=== PATIENT | female | born 1970 | race Caucasian/White ===

== ENCOUNTER → 2016-06-12 | Outpatient (CLI) | payer BC ==
--- NOTE | 2016-06-13 13:58 | MM ---
Reason for exam: screening (asymptomatic). Last mammogram was performed 2 years and 10 months ago. History: Patient is nulliparous. Physical Findings: A clinical breast exam by your physician is recommended on an annual basis and results should be correlated with mammographic findings. MG Screening Mammo w CAD Bilateral CC and MLO view(s) were taken. Prior study comparison: August 06, 2013, right breast MG work up mamm w CAD RT. July 27, 2013, bilateral MG screening mammo w CAD. The breast tissue is heterogeneously dense. This may lower the sensitivity of mammography. Some faint calcifications superior right breast were present previously. No significant changes when compared with prior studies. ASSESSMENT: Negative, BI-RAD 1 RECOMMENDATION: Routine screening mammogram of both breasts in 1 year.
== END | disposition home or self-care (01) ==
LOC: RADMAMWWP 14:56
PROVIDERS: ATTEND Obstetrics & Gynecology
DX: Z12.31 Encounter for screening mammogram for malignant neoplasm of breast (principal)

== ENCOUNTER → 2020-08-18 | Outpatient (CLI) | payer BC ==
--- NOTE | 2020-08-22 11:10 | MM ---
Reason for exam: screening (asymptomatic). Last mammogram was performed 4 years and 2 months ago. History: Patient is nulliparous. Physical Findings: A clinical breast exam by your physician is recommended on an annual basis and results should be correlated with mammographic findings. MG Screening Mammo w CAD Bilateral CC and MLO view(s) were taken. Prior study comparison: June 12, 2016, bilateral MG screening mammo w CAD. August 06, 2013, right breast MG work up mamm w CAD RT. The breast tissue is heterogeneously dense. This may lower the sensitivity of mammography. Finding: There are intermediate concern, suspicious grouped/clustered calcifications in the upper outer quadrant of the right breast. ASSESSMENT: Incomplete: need additional imaging evaluation, BI-RAD 0 RECOMMENDATION: Special view mammogram of the right breast. [facility] will attempt to contact patient to return for supplemental views.
== END | disposition home or self-care (01) ==
LOC: RADMAMWWP 10:58
PROVIDERS: ATTEND Family Medicine
DX: Z12.31 Encounter for screening mammogram for malignant neoplasm of breast (principal)
CPT/HCPCS: 77067

== ENCOUNTER → 2020-08-30 | Outpatient (CLI) | payer BC ==
--- NOTE | 2020-08-31 07:47 | MM ---
Reason for exam: additional evaluation requested from abnormal screening. Last mammogram was performed less than 1 month ago. History: Patient is postmenopausal and is nulliparous. Physical Findings: Nurse did not find any significant physical abnormalities on exam. MG Work Up Mamm w CAD RT CC with magnification, LM with magnification, and LM view(s) were taken of the right breast. Prior study comparison: August 18, 2020, bilateral MG screening mammo w CAD. June 12, 2016, bilateral MG screening mammo w CAD. The breast tissue is heterogeneously dense. This may lower the sensitivity of mammography. Finding: There are intermediate concern, suspicious amorphous, coarse heterogeneous, grouped/clustered calcifications in the upper outer quadrant, posterior position of the right breast, 2.7cm in length, do not layer on true lateral view. These results were verbally communicated with the patient and result sheet given to the patient on 08/30/20. ASSESSMENT: Suspicious, BI-RAD 4 RECOMMENDATION: Stereotactic core biopsy of the right breast. Called Dr. Bruner's office with mammographic findings and has scheduled an appointment for the patient for 08/31/20 at 2:[address] Anderson. PRELIMINARY REPORT CALLED AND FAXED TO DR. ANDERSON ON 08/31/20.
== END | disposition home or self-care (01) ==
LOC: RADMAMWWP 13:46
PROVIDERS: ATTEND Family Medicine
DX: R92.1 Mammographic calcification found on diagnostic imaging of breast (principal); Z78.0 Asymptomatic menopausal state
CPT/HCPCS: 77065

== ENCOUNTER → 2020-09-18 | Day surgery (SDC) | payer BC ==
[2020-09-18 07:16] VITALS: RESP 16; TEMP 98.6
[2020-09-18 08:46] VITALS: BP 179/109; PULSE 88
--- NOTE | 2020-09-18 09:47 | P.PCN ---
Date of Procedure: 09/18/20 Preoperative Diagnosis: Abnormal mammogram right breast Postoperative Diagnosis: Abnormal mammogram right breast Procedure(s) Performed: Right stereotactic breast biopsy with marker placement Anesthesia: local Surgeon: Adali Anderson Pathology: other Condition: stable Description of Procedure: The patient is taken to the stereotactic suite where the area of concern is marked by the radiologist. The breast is prepped with betadine. Local anesthetic is instilled into the skin and breast tissue. A skin knick is made and the needle is advanced to the appropriate depth. Pre and post fire films are obtained. Multiple vacuum assisted automated cores are then obtained. Specimen mammography is obtained and shows multiple calcifications present. A tissue marker is then placed. Mammography showed good placement. THe needle and sheath are withdrawn. Pressure is held. A sterile dressing is placed. THe patient tolerated the procedure without difficulty and is discharged in good condition. She will follow up in the office with further recommendations to follow.
--- NOTE | 2020-09-18 17:31 | MM ---
EXAMINATION TYPE: MG stereo VAD BX RT DATE OF EXAM: 09/18/2020 COMPARISON: 08/18/2020 CLINICAL HISTORY: Right breast calcifications TECHNIQUE: Stereotactic guided core biopsy of right breast. FINDINGS: The procedure of stereotactic guided core biopsy was explained to the patient. Benefits, a lternatives, and risks were discussed. An informed consent was then obtained. The shortness pathway for biopsy was chosen. A performed for localization. Then, surgeon, Dr. Dr. Andrea pimentel performed the remainder of the procedure. A vacuum assisted biopsy gun was used to obtain multipl e core samples. The patient tolerated the procedure well without any immediate complication. The patient was kept in the radiology department for short stay after the procedure and then discharged home in stable condi tion. Targeted calcifications are identified in specimen mammogram. Post biopsy mammogram shows the clip to appear in satisfactory position relative to the targeted area of concern on the preprocedure images. IMPRESSION: SUCCESSFUL, UNCOMPLICATED STEREOTACTIC GUIDED CORE BIOPSY OF AREA OF CONCERN IN THE RIGHT BREAST by gal montgomery surgeon, FULL PATHOLOGY RESULTS TO FOLLOW.
== END ==
LOC: RADMAMWWP 07:03
PROVIDERS: ATTEND Surgery
DX: C50.911 Malignant neoplasm of unspecified site of right female breast (principal); R92.0 Mammographic microcalcification found on diagnostic imaging of breast
CPT/HCPCS: 88305; 88342; 88341; 19081; A4648

== ENCOUNTER 2020-10-09 07:45 | Day surgery (SDC) | payer BC ==
[2020-10-05 15:05] VITALS: BMI 18.6
[~2020-10-09 07:45] MED LIST: DEXAMETHASONE SOD PHOSPHATE 4 MG/ML 1 ML VIAL IV ONE; HYDROmorphone 0.5 MG/0.5 ML SYRINGE IVP PRN; LACTATED RINGERS 1,000 ML IV SCH; LIDOCAINE 1% (10MG/ML) FOR IV START INTRADERMA PRN; MIDAZOLAM 2 MG/2 ML VIAL IV PRN; ONDANSETRON 4 MG/2 ML VIAL IVP ONE; Pre Op ABX Message 1 EACH MISC MISCELLANE ONE
[2020-10-09] MEDS ORDERED: ALPRAZolam 0.5 MG TAB ONE (08:29)
[2020-10-09] MEDS ORDERED: ALPRAZolam 0.5 MG TAB PO ONE (08:31)
--- NOTE | 2020-10-09 08:54 | P.PN ---
Progress Note - Text Progress Note Date: 10/09/20 H&P amendment: The patient discussed the treatment options with her family. I talked to her on the phone. She elected for lumpectomy with sentinel lymph node biopsy. The procedure Risk and complications were discussed. Questions were encouraged and answered.
[2020-10-09] MEDS ORDERED: ePHEDrine SULFATE/0.9% NACL/PF 50 MG/5 ML SYRINGE IV ONE (11:33)
[2020-10-09] MEDS ORDERED: fentaNYL (PF) 50 MCG/ML 2 ML AMP ONE (11:33)
[2020-10-09] MEDS ORDERED: MIDAZOLAM 2 MG/2 ML VIAL ONE (11:33)
[2020-10-09] MEDS ORDERED: KETAMINE 10 MG/ML 20 ML VIAL ONE (11:33)
[2020-10-09] MEDS ORDERED: LIDOCAINE 1% INJ 10MG/ML (20 ML MDV) ONE (11:33)
[2020-10-09] MEDS ORDERED: SUCCINYLCHOLINE CHLORIDE 100 MG/5 ML SYR IV ONE (11:33)
[2020-10-09] MEDS ORDERED: PROPOFOL 10 MG/ML 20 ML VIAL IV ONE (11:33)
[2020-10-09] MEDS ORDERED: SODIUM CHLORIDE 0.9% 100 ML with ceFAZolin 2,000 MG IV ONE ×2 (11:55)
[2020-10-09] MEDS ORDERED: LACTATED RINGERS 1,000 ML IV ONE (12:02)
[2020-10-09] MEDS ORDERED: LIDOCAINE 0.5%-EPI 1:200,000 50 ML VIAL SQ ONE (12:53)
[2020-10-09] MEDS ORDERED: BUPIVACAINE (PF) 0.25% 30 ML VIAL SQ ONE (12:53)
--- NOTE | 2020-10-09 13:08 | P.OP ---
Date of Procedure: 10/09/20 Preoperative Diagnosis: Breast cancer right breast Postoperative Diagnosis: Breast cancer right breast Procedure(s) Performed: Needle localized lumpectomy with sentinel lymph node biopsy Anesthesia: DAWNA Surgeon: Adali Anderson Estimated Blood Loss (ml): 15 Pathology: other Condition: stable Disposition: PACU Indications for Procedure: The patient had a stereotactic breast biopsy performed for microcalcification showing a infiltrating ductal carcinoma Description of Procedure: Patient's taken the operative suite where she is prepped and draped in the usual sterile manner under general endotracheal anesthetic. Starting on the right axilla, probe was used to identify the sentinel lymph node. Counts at the skin level was about 200. A small skin incision was made and dissection was carried down to the sentinel lymph node. This was small. Ex vivo count was over 1000. There was a secondary lymph node which was also dissected, ex vivo count was about 300. These were sent for frozen section. The verbal report was that there was no cancer in either lymph node. The skin incision was closed with 4-0 Vicryl in a subcuticular manner. Steri-Strips were applied. The area was covered with a sterile towel. A small skin incision was then made on the breast. Skin flaps were raised. Dissection was carried out over the tissue which was marked by the guidewire. This was dissected off the pectoralis muscle. The specimen was tagged and sent for mammography. The tissue marker was within the specimen along with the scattered area of microcalcifications. Small bleeding points were then controlled with electrocautery. The biopsy cavity was marked with ligaclips. The skin was closed with 4-0 Vicryl in a subcuticular manner. Steri-Strips and dressings were applied. She tolerated the procedure without difficulty and was taken to recovery room in satisfactory condition. According to or personnel, WERE correct. Plan - Discharge Summary Discharge Rx Participant: No New Discharge Prescriptions: New traMADol HCL 1 - 2 mg PO Q6HR PRN #20 tablet PRN Reason: Pain No Action lisinopriL [Zestril] 5 mg PO DAILY ALPRAZolam [Xanax] 0.25 mg PO DAILY PRN PRN Reason: Anxiety Discharge Medication List lisinopriL [Zestril] 5 mg PO DAILY 09/05/20 [History] ALPRAZolam [Xanax] 0.25 mg PO DAILY PRN 10/05/20 [History] traMADol HCL 1 - 2 mg PO Q6HR PRN #20 tablet 10/09/20 [Rx] Follow up Appointment(s)/Referral(s): Adali Anderson DO [Doctor of Osteopathic Medicine] - 1 Week Activity/Diet/Wound Care/Special Instructions: Maintain the dressings until Friday. On Friday the dressings may be removed and you may shower. Use a light dressing if the incisions are rubbing on your clothing or there is a small amount of drainage. Where a well supporting bra. Ice to the incisions for 24-48 hours. You may take Tylenol or Motrin for pain. Call if questions or concerns Discharge Disposition: HOME SELF-CARE
[2020-10-09 13:20] VITALS: TEMP 97.1
[2020-10-09] MEDS ORDERED: hydrALAZINE HCL 20 MG/ML 1 ML VIAL ONE (13:35)
[2020-10-09] MEDS ORDERED: hydrALAZINE HCL 20 MG/ML 1 ML VIAL IVP ONE (13:38)
--- NOTE | 2020-10-09 14:07 | MM ---
EXAMINATION TYPE: MG pre op needle loc RT, MG surgical specimen RT DATE OF EXAM: 10/09/2020 COMPARISON: 10/09/2020 CLINICAL HISTORY: Right breast DCIS TECHNIQUE: Needle localization with wire placement and lumpectomy of area of concern in the right breast. FINDINGS: Prior to the procedure, I had a conversation with the ordering surgeon regarding the large area of calcifications measuring greater than 3 x 3 x 2 cm and she requested localization of the biopsy clip. The procedure of needle localization with wire placement and than surgical excision was explained to the patient. Benefits, alternatives, and risks were discussed. An informed consent was then obtained. The shortest pathway for procedure was chosen. Shortest pathway was lateral approach. The overlying skin was prepped and draped in usual sterile fashion. Lidocaine buffered with bicarbonate was used as anesthetic into the skin and subcutaneous tissue up to the level of area of concern. A 7 cm needle was used. It was placed via a lateral approach under mammographic guidance. Subsequent 90 degrees mammogram show the needle to be in satisfactory position relative to the targeted area. At this point, wire was placed and the needle was withdrawn. The wire was fixed to patient's skin. Images were marked for surgeon. The patient tolerated the procedure well without any immediate complication. The patient was kept in the radiology department for short stay after the procedure and then taken to surgery for surgical excision. Targeted clip and wire are identified in specimen mammogram. The patient was kept in hospital for short stay after the procedure and then discharged home in stable condition. Specimen radiographs of the right breast include the biopsy clip and distal localization wire with calcifications which approach the edge of the specimen. IMPRESSION: Successful, uncomplicated needle localization with wire placement and surgical excision of calcifications in the right breast, full pathology results to follow. Pathology Results: Malignant A. SENTINEL LYMPH NODE #1, RIGHT BREAST, BIOPSY: Lymph node negative for metastasis. CK7 and ANUJ immunoperoxidase stains are confirmatory (controls appropriate). B. SENTINEL LYMPH NODE #2, RIGHT BREAST, BIOPSY: Lymph node negative for metastasis. CK7 and ANUJ immunoperoxidase stains are confirmatory (controls appropriate). C. 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 DCIS closely approximates the anterior margin multifocally (much less than 1 mm from anterior margin) and is focally less than 1 mm from superior margin. See Surgical Pathology Cancer Case Summary. Recommendation Surgical consult of the right breast. Given multiple margins less than 1mm, calcifications at specimen edge and pathology upgrade to invasive, there is concern for residual disease. Please consider right diagnostic mammogram and bilateral breast MRI with and without contrast to evaluate for residual disease. MTDD
[2020-10-09 14:23] VITALS: BP 145/78; PULSE 68; RESP 18
--- NOTE | 2020-10-09 14:29 | NM ---
EXAMINATION TYPE: NM sentinel node injection DATE OF EXAM: 10/09/2020 COMPARISON: NONE INDICATION: Abnormal mammogram. Informed consent was obtained. A timeout was performed. The area around the right nipple was cleansed with alcohol. In a single dose, a total of 400 uCi Te chnetium 99m Tilmanocept was injected. The patient tolerated the procedure very well. IMPRESSIONS: 1. Successful injection for sentinel node evaluation.
== END 2020-10-09 14:38 | disposition home or self-care (01) ==
LOC: OR 07:45
PROVIDERS: ATTEND Surgery
DX: C50.911 Malignant neoplasm of unspecified site of right female breast (principal); Z87.891 Personal history of nicotine dependence; I10 Essential (primary) hypertension
CPT/HCPCS: 19301; 88342; 88331; 88307; 88341; 76098; 19281; 38792; 38500; A9520; J2250; J0360; J1100; J2405; J0690; J2001; J3010; J0330; J2704

== ENCOUNTER → 2020-11-08 | Outpatient (CLI) | payer BC ==
--- NOTE | 2020-11-09 09:31 | ECHOF ---
Referral Reason:Z01.818 pre chemo MEASUREMENTS -------- HEIGHT: 165.1 cm WEIGHT: 49.9 kg BP: RVIDd: 2.4 cm (< 3.3) IVSd: 0.8 cm (0.6 - 1.1) LVIDd: 3.1 cm (3.9 - 5.3) LVPWd: 1.1 cm (0.6 - 1.1) IVSs: 1.3 cm LVIDs: 1.6 cm LVPWs: 1.5 cm LAESV Index (A-L): 14.81 ml/m Ao Diam: 2.9 cm (2.0 - 3.7) AV Cusp: 1.2 cm (1.5 - 2.6) LA Diam: 2.6 cm (2.7 - 3.8) MV EXCURSION: 20.347 mm (> 18.000) MV EF SLOPE: 132 mm/s (70 - 150) EPSS: 1.0 cm MV E Shaji: 0.97 m/s MV DecT: 191 ms MV A Shaji: 0.76 m/s MV E/A Ratio: 1.28 AV maxP.21 mmHg AV meanP.27 mmHg RAP: 5.00 mmHg RVSP: 20.81 mmHg FINDINGS -------- This was a technically good study. The left ventricular size is normal. Left ventricular wall thickness is normal. Overall left vent ricular systolic function is normal with, an EF between 55 - 60 %. The diastolic filling pattern is normal for the age of the patient {E/E'}. The right ventricle is normal in size. The left atrial size is normal. Normal LA size by volume 22+/-6 ml/m2. The right atrial size is normal. The aortic valve is trileaflet and appears structurally normal. Peak/mean gradient across the Aorti c Valve is 13.21mmHg / 7.27mmHg. The mitral valve is normal. The mitral valve leaflets are mildly thickened. There is trace mitral regurgitation. The tricuspid valve appears structurally normal. Trace tricuspid regurgitation present. Right cyn tricular systolic pressure is normal at < 35 mmHg. There is no pulmonic regurgitation present. The aortic root size is normal. Normal inferior vena cava with normal inspiratory collapse consistent with estimated right atrial pre ssure of 5 mmHg. There is no pericardial effusion. CONCLUSIONS -------- 1. The left ventricular size is normal. 2. Left ventricular wall thickness is normal. 3. Overall left ventricular systolic function is normal with, an EF between 55 - 60 %. 4. The diastolic filling pattern is normal for the age of the patient {E/E'} 5. Peak/mean gradient across the Aortic Valve is 13.21mmHg / 7.27mmHg. 6. The mitral valve leaflets are mildly thickened. 7. There is trace mitral regurgitation. 8. Trace tricuspid regurgitation present. 9. There is no pericardial effusion. PIPE LINE MAINTENANCE SUPERVISOR: Bonnie Redman RDCS
== END | disposition home or self-care (01) ==
LOC: RADECHMAIN 13:54
PROVIDERS: ATTEND Internal Medicine Hematology & Oncology
DX: I08.1 Rheumatic disorders of both mitral and tricuspid valves (principal)
CPT/HCPCS: 93306

== ENCOUNTER → 2021-01-22 | Outpatient (CLI) | payer BC ==
--- NOTE | 2021-01-22 08:51 | USB ---
Reason for exam: clinical finding. History: Patient is postmenopausal, has history of breast cancer at age 50, and is nulliparous. Malignant MG pre op needle loc RT of the right breast, October 09, 2020. Lumpectomy of the right breast, October 09, 2020. Malignant MG stereo VAD BX RT of the right breast, September 18, 2020. Indicated problem(s): palpable abnormality and pain in the right breast. Physical Findings: Nurse did not find any significant physical abnormalities on exam. US Breast RT Technologist: Juanita Campuzano Right complete breast ultrasound includes all four quadrants, the retroareolar region and axilla. Finding demonstrates a 1.7 x 1.5 x 0.8cm questionable lumpectomy site at 12 o'clock. These results were verbally communicated with the patient and result sheet given to the patient on 01/22/21. ASSESSMENT: Probably benign, BI-RAD 3 RECOMMENDATION: Ultrasound of the right breast in 6 months.
== END | disposition home or self-care (01) ==
LOC: RADUSWWP 07:28
PROVIDERS: ATTEND Internal Medicine Hematology & Oncology
DX: R92.8 Other abnormal and inconclusive findings on diagnostic imaging of breast (principal); Z85.3 Personal history of malignant neoplasm of breast

== ENCOUNTER → 2021-02-12 | Outpatient (CLI) | payer BC ==
--- NOTE | 2021-02-13 13:00 | ECHOF ---
Referral Reason:Z01.818 Prechemotherapy exposure MEASUREMENTS -------- HEIGHT: 165.1 cm WEIGHT: 54.4 kg BP: RVIDd: 2.8 cm (< 3.3) IVSd: 0.9 cm (0.6 - 1.1) LVIDd: 4.5 cm (3.9 - 5.3) LVPWd: 0.9 cm (0.6 - 1.1) IVSs: 1.1 cm LVIDs: 2.8 cm LVPWs: 1.3 cm LAESV Index (A-L): 27.91 ml/m Ao Diam: 2.1 cm (2.0 - 3.7) AV Cusp: 1.5 cm (1.5 - 2.6) MV EXCURSION: 14.757 mm (> 18.000) MV EF SLOPE: 91 mm/s (70 - 150) EPSS: 0.4 cm MV E Shaji: 1.21 m/s MV DecT: 197 ms MV A Shaji: 0.50 m/s MV E/A Ratio: 2.42 RAP: 5.00 mmHg RVSP: 37.97 mmHg FINDINGS -------- Sinus rhythm. This was a technically adequate study. The left ventricular size is normal. Left ventricular wall thickness is normal. Overall left vent ricular systolic function is normal with, an EF between 55 - 60 %. The right ventricle is normal in size. Normal LA size by volume 22+/-6 ml/m2. The right atrial size is normal. Interatrial and interventricular septum intact. There is no evidence of aortic regurgitation. There is no evidence of aortic stenosis. Mild mitral regurgitation is present. Mild tricuspid regurgitation present. There is no evidence of pulmonary hypertension. The right v entricular systolic pressure, as measured by Doppler, is 37.97mmHg. There is no pulmonic regurgitation present. The aortic root size is normal. IVC Not well visulized. There is no pericardial effusion. CONCLUSIONS -------- 1. The left ventricular size is normal. 2. Left ventricular wall thickness is normal. 3. Overall left ventricular systolic function is normal with, an EF between 55 - 60 %. 4. Mild mitral regurgitation is present. 5. Mild tricuspid regurgitation present. THERMOSTAT MAKER: Kesha Lamb, [facility]
== END | disposition home or self-care (01) ==
LOC: RADECHMAIN 14:06
PROVIDERS: ATTEND Internal Medicine Hematology & Oncology
DX: Z01.818 Encounter for other preprocedural examination (principal); I08.1 Rheumatic disorders of both mitral and tricuspid valves
CPT/HCPCS: 93306

== ENCOUNTER → 2021-06-01 | Outpatient (CLI) | payer BC ==
--- NOTE | 2021-06-01 21:09 | PE ---
EXAMINATION TYPE: PET CT fusion skull to thigh DATE OF EXAM: 06/01/2021 COMPARISON: NONE HISTORY: Right-sided breast cancer removed in October 09, 2020 TECHNIQUE: Following the intravenous administration of 9.77 mCi of F-18 FDG, whole body images are p erformed from the skull base to the midthigh. Images are reviewed on the computer in the coronal, ax ial, and sagittal planes. Reconstructed rotating images are created on independent workstation and r eviewed on the computer. A localization and attenuation correction CT is performed in conjunction w ith the PET scan. Blood glucose level equals 78 SCAN: Initial Scan FINDINGS: SKULL BASE AND NECK: No areas of abnormal hypermetabolic uptake. CHEST, MEDIASTINUM, AND HILAR REGION: Surgical Changes from excision posterior upper outer quadrant r ight breast axial images 69 through 78. No abnormal hypermetabolic uptake at this level. No abnormal hypermetabolic uptake in either breast or axilla. No abnormal hypermetabolic uptake in the thorax. ABDOMEN AND PELVIS: Normal excretion. Nonspecific bowel uptake right lower quadrant and pelvis. No ad ditional abnormal hypermetabolic uptake. OSSEOUS STRUCTURES: No abnormal hypermetabolic uptake. OTHER CT: No significant findings. IMPRESSION: Posttreatment changes right breast. No abnormal hypermetabolic uptake Identified to suggest active residual or metastatic malignancy.
== END | disposition home or self-care (01) ==
LOC: RADPETMAIN 09:31
PROVIDERS: ATTEND Internal Medicine Hematology & Oncology
DX: C50.919 Malignant neoplasm of unspecified site of unspecified female breast (principal)
CPT/HCPCS: 78815; A9552

== ENCOUNTER → 2021-06-06 | Outpatient (CLI) | payer BC ==
--- NOTE | 2021-06-08 17:07 | ECHOF ---
Referral Reason:Z01.818 MEASUREMENTS -------- HEIGHT: 165.1 cm WEIGHT: 54.4 kg BP: RVIDd: 2.9 cm (< 3.3) IVSd: 0.8 cm (0.6 - 1.1) LVIDd: 4.3 cm (3.9 - 5.3) LVPWd: 1.0 cm (0.6 - 1.1) IVSs: 1.2 cm LVIDs: 2.5 cm LVPWs: 1.5 cm LAESV Index (A-L): 23.25 ml/m Ao Diam: 2.1 cm (2.0 - 3.7) AV Cusp: 1.5 cm (1.5 - 2.6) LA Diam: 2.5 cm (2.7 - 3.8) MV EXCURSION: 17.514 mm (> 18.000) MV EF SLOPE: 110 mm/s (70 - 150) EPSS: 0.3 cm MV E Shaji: 0.97 m/s MV DecT: 198 ms MV A Shaji: 0.68 m/s MV E/A Ratio: 1.43 RAP: 5.00 mmHg RVSP: 28.05 mmHg FINDINGS -------- Sinus rhythm. This was a technically adequate study. The left ventricular size is normal. Left ventricular wall thickness is normal. Overall left vent ricular systolic function is normal with, an EF between 55 - 60 %. The right ventricle is normal in size. Normal LA size by volume 22+/-6 ml/m2. The right atrial size is normal. Interatrial and interventricular septum intact. Trace amount of aortic regurgitation. There is no evidence of aortic stenosis. There is trace mitral regurgitation. Mild tricuspid regurgitation present. There is no evidence of pulmonary hypertension. The right v entricular systolic pressure, as measured by Doppler, is 28.05mmHg. There is no pulmonic regurgitation present. The aortic root size is normal. Normal inferior vena cava with normal inspiratory collapse consistent with estimated right atrial pre ssure of 5 mmHg. There is no pericardial effusion. CONCLUSIONS -------- 1. The left ventricular size is normal. 2. Left ventricular wall thickness is normal. 3. Overall left ventricular systolic function is normal with, an EF between 55 - 60 %. 4. Trace amount of aortic regurgitation. 5. There is trace mitral regurgitation. 6. Mild tricuspid regurgitation present. OPHTHALMIC AIDE: Kesha Lamb RDCS
== END | disposition home or self-care (01) ==
LOC: RADECHMAIN 14:38
PROVIDERS: ATTEND Internal Medicine Hematology & Oncology
DX: Z01.818 Encounter for other preprocedural examination (principal); I08.3 Combined rheumatic disorders of mitral, aortic and tricuspid valves
CPT/HCPCS: 93306

== ENCOUNTER → 2021-09-03 | Outpatient (CLI) | payer BC ==
--- NOTE | 2021-09-05 08:50 | MM ---
Reason for Exam: Screening (asymptomatic). Last mammogram was performed 1 year(s) and 1 month(s) ago. Patient History: Menarche at age 12. Patient has no children. Postmenopausal. Breast cancer, right, age 50. Previous chest radiation therapy at age 50. Previous chemotherapy at age 50. 10/09/2020, Lumpectomy on the Right side. 10/09/2020, Malignant Core Biopsy on the right side. 09/18/2020, Malignant Core Biopsy on the right side. Prior Study Comparison: 06/12/2016 Bilateral Screening Mammogram, [facility]. 08/18/2020 Bilateral Screening Mammogram, [facility]. 08/30/2020 Right Diagnostic Mammogram, [facility]. Tissue Density: The breast tissue is heterogeneously dense. This may lower the sensitivity of mammography. Findings: Analyzed By CAD. New distortion and surgical clips Zhang posttreatment changes in the upper outer aspect right breast. There is no suspicious group of microcalcifications in either breast. Overall Assessment: Probably benign, BI-RAD 3 Management: Diagnostic Mammogram of the right breast in 6 months. To establish new baseline for the right breast. Electronically signed and approved by: Efrain Rodriguez M.D.
== END | disposition home or self-care (01) ==
LOC: RADMAMWWP 11:42
PROVIDERS: ATTEND Internal Medicine Hematology & Oncology
DX: Z12.31 Encounter for screening mammogram for malignant neoplasm of breast (principal); Z78.0 Asymptomatic menopausal state
CPT/HCPCS: 77063; 77067

== ENCOUNTER → 2021-10-30 | Outpatient (CLI) | payer BC ==
--- NOTE | 2021-10-30 16:35 | BD ---
EXAMINATION TYPE: Axial Bone Density DATE OF EXAM: 10/30/2021 COMPARISON: NONE CLINICAL HISTORY: 51 years year old Female. ICD-10 CODE: C50.411 breast ca Height: 65 Weight: 114 FRAX RISK QUESTIONS: Alcohol (3 or more units per day): NO Family History (Parent hip fracture): NO Glucocorticoids (More than 3mos): NO History of Fracture in Adulthood: NO Secondary Osteoporosis: 1. Type 1 Diabetes: NO 2. Hyperthyroidism: NO 3. Menopause before 45: NO 4. Malnutrition: NO 5. Chronic liver disease: NO Rheumatoid Arthritis: NO Current Tobacco :NO RISK FACTORS HISTORY OF: Hip Fracture (Right/Left): nO Spine Fracture: NO History of Wrist Fracture: NO Surgery to Spine/Hip(right/left)/Wrist (right/left): NO Family History of Osteoporosis: NO Active: YES Diet low in dairy products/other sources of calcium: NO Postmenopausal woman: YES If Premenopausal, do you have irregular periods: YES Take estrogen and/or progesterone medications: ESTROGEN ELY SINCE BREAST CA. (2020) Lost more than 2 inches in height since high school: NO Frequent falls: NO Poor Health: NO Hyperparathyroidism: NO Adrenal Insufficiency: NO MEDICATIONS: Prednisone or other steroids: NO Thyroid Medications: NO Osteoporosis Medications:NO Additional Medications: ESTROGEN ELY, LISINOPRIL, VIT D, VIT B EXAM MEASUREMENTS: Bone mineral densitometry was performed using the [employer]. Bone mineral density as measured about the Lumbar spine is: ----- L1-L4(G/cm2): 0.993 T Score Values are as follows: ----- L1: -1.2 ----- L2: -1.7 ----- L3: -1.9 ----- L4: -1.6 ----- L1-L4: -1.6 BASELINE STUDY Bone mineral density about the R hip (g/cm2): 0.747 Bone mineral density about the L hip (g/cm2): 0.733 T Score values are as follows: -----R Neck: -2.1 -----L Neck: -2.2 -----R Total: -1.6 -----L Total: -1.7 BASELINE STUDY FRAX%s: The graph provided illustrates a 5.2% chance for a major osteoporotic fx and a 1.0% chance fo r the hips probability for fx in 10 years time. IMPRESSION: Osteopenia (T Score between -2.5 and -1). There is slightly increased risk of fracture and the patient may be considered for treatment. Re-Screen 2-5 years. NOTE: T-SCORE=SD OF THE YOUNG ADULT MEAN.
--- NOTE | 2021-10-30 17:40 | CA ---
Transthoracic Echo Report Name: Laina Liu Age: 51 Gender: F : 1970 Exam Date: 10/30/2021 12:25 Exam Location: [facility] Ht (in): 65 Wt (lb): 120 Ordering Physician: Paulo Samuel MD Attending/Referring Phys: Paulo Samuel MD Vamper Kesha Lamb RDCS Procedure CPT: Indications: Z01.818, C50.411 breast ca Cardiac Hx: Technical Quality: Contrast 1: Total Dose (mL): Contrast 2: Total Dose (mL): MEASUREMENTS (Male / Female) Normal Values 2D ECHO LV Diastolic Diameter PLAX 4.8 cm 4.2 - 5.9 / 3.9 - 5.3 cm LV Systolic Diameter PLAX 3.0 cm IVS Diastolic Thickness 0.8 cm 0.6 - 1.0 / 0.6 - 0.9 cm LVPW Diastolic Thickness 0.9 cm 0.6 - 1.0 / 0.6 - 0.9 cm LV Relative Wall Thickness 0.4 RV Internal Dim ED PLAX 2.1 cm LA Volume 19.9 cm??? 18 - 58 / 22 - 52 cm??? M-MODE Aortic Root Diameter MM 2.7 cm LA Systolic Diameter MM 3.4 cm LA Ao Ratio MM 1.3 AV Cusp Separation MM 1.7 cm DOPPLER AV Peak Velocity 181.0 cm/s AV Peak Gradient 13.1 mmHg LVOT Peak Velocity 110.9 cm/s LVOT Peak Gradient 4.9 mmHg MV Area PHT 3.4 cm??? Mitral E Point Velocity 117.6 cm/s Mitral A Point Velocity 78.3 cm/s Mitral E to A Ratio 1.5 MV Deceleration Time 224.7 ms MV E' Velocity 8.0 cm/s Mitral E to MV E' Ratio 14.6 TR Peak Velocity 258.5 cm/s TR Peak Gradient 26.7 mmHg Right Ventricular Systolic Press 30.7 mmHg FINDINGS Left Ventricle Normal left ventricular size, wall thickness, systolic function with no obvious regional wall motion abnormalities. Normal left ventricular diastolic filling pattern for age. The ejection fraction is visually estimated at 55 %. Right Ventricle The right ventricle is normal in size and function. Right ventricular systolic pressure within normal limits. Right Atrium The right atrium is normal in size. Left Atrium The left atrium is normal in size. No evidence for an atrial septal defect. Mitral Valve Structurally normal mitral valve without significant stenosis or prolapse. Mild mitral regurgitation. Aortic Valve Structurally normal aortic valve without significant sclerosis or stenosis. There is no aortic regurgitation. Tricuspid Valve Mild tricuspid regurgitation. Pulmonic Valve Structurally normal pulmonic valve without significant stenosis. Trace pulmonic regurgitation. Pericardium Normal pericardium without effusion. Aorta Normal aortic root dimension. CONCLUSIONS Left ventricular systolic function is normal with an ejection fraction of 55% Mild mitral regurgitation Previewed by: Dr. Leighton Garcia MD (Electronically Signed) Final Date: 30 October 2021 17:39
== END | disposition home or self-care (01) ==
LOC: RADECHMAIN 12:20
PROVIDERS: ATTEND Internal Medicine Hematology & Oncology
DX: Z01.818 Encounter for other preprocedural examination (principal); C50.411 Malignant neoplasm of upper-outer quadrant of right female breast
CPT/HCPCS: 77080; 93306

== ENCOUNTER → 2022-09-04 | Outpatient (CLI) | payer BC ==
--- NOTE | 2022-09-11 13:35 | MM ---
Reason for Exam: Hx of breast cancer, conservation therapy. Last screening mammogram was performed 12 month(s) ago. Patient History: Menarche at age 12. Patient has no children. Postmenopausal. Breast cancer, right, age 50. Previous chest radiation therapy at age 50. Previous chemotherapy at age 50. 10/09/2020, Lumpectomy on the Right side. 10/09/2020, Malignant Core Biopsy on the right side. 09/18/2020, Malignant Core Biopsy on the right side. Tissue Density: The breast tissue is heterogeneously dense. This may lower the sensitivity of mammography. Findings: Analyzed By CAD. Pattern is stable. There are lumpectomy surgical clips on the right. No significant interval changes are evident. No suspicious groups of microcalcifications, spiculated or lobular masses, architectural distortion or other secondary signs of malignancy are mammographically apparent. Overall Assessment: Benign, BI-RAD 2 Management: Diagnostic Mammogram of both breasts in 1 year. A negative mammogram report should not preclude additional follow up of suspicious palpable abnormalities. Patient should continue monthly self breast exam. A clinical breast exam by your physician is recommended on an annual basis and results should be correlated with mammographic findings. Electronically signed and approved by: Jai Estrada D.O. Radiologis
== END | disposition home or self-care (01) ==
LOC: RADMAMWWP 11:00
PROVIDERS: ATTEND Internal Medicine Hematology & Oncology
DX: Z12.31 Encounter for screening mammogram for malignant neoplasm of breast (principal); C50.411 Malignant neoplasm of upper-outer quadrant of right female breast; I10 Essential (primary) hypertension; Z78.0 Asymptomatic menopausal state; Z85.3 Personal history of malignant neoplasm of breast
CPT/HCPCS: 77062; 77066

== ENCOUNTER → 2023-09-08 | Outpatient (CLI) | payer BC ==
--- NOTE | 2023-09-08 14:48 | MM ---
Reason for Exam: Additional evaluation requested from prior study. Last screening mammogram was performed 12 month(s) ago. Patient History: Menarche at age 12. Patient has no children. Postmenopausal. Breast cancer, right, age 50. Previous chest radiation therapy at age 50. Previous chemotherapy at age 50. 10/09/2020, Lumpectomy on the Right side. 10/09/2020, Malignant Core Biopsy on the right side. 09/18/2020, Malignant Core Biopsy on the right side. Prior Study Comparison: 04/21/2008 Bilateral Screening Mammogram, LOCATED WITHIN [facility]. 07/27/2013 Bilateral Screening Mammogram, LOCATED [facility]. 08/06/2013 Right Diagnostic Mammogram, LOCATED [facility]. 06/12/2016 Bilateral Screening Mammogram, LOCATED [facility]. 08/18/2020 Bilateral Screening Mammogram, LOCATED [facility]. 08/30/2020 Right Diagnostic Mammogram, LOCATED [facility]. 01/22/2021 Right Diagnostic Ultrasound, LOCATED [facility]. 09/03/2021 Bilateral MG 3D screening mammo w/cad, LOCATED [facility]. 09/04/2022 Bilateral MG 3D diag mammo w/cad [facility], LOCATED [facility] 09/04/2022 Bilateral MG 3D screening mammo w/cad, LOCATED [facility]. 09/04/2022 Bilateral MG screening mammo w CAD, LOCATED [facility]. Tissue Density: There are scattered areas of fibroglandular density. Findings: Analyzed By CAD. Pattern appears stable. Postsurgical clips are within the upper outer right breast where lumpectomy. No significant interval change is evident. No suspicious groups of microcalcifications, spiculated or lobular masses, architectural distortion or other secondary signs of malignancy are mammographically apparent. Overall Assessment: Benign, BI-RAD 2 Management: Diagnostic Mammogram of both breasts in 1 year. A negative mammogram report should not preclude additional follow up of suspicious palpable abnormalities. Patient should continue monthly self breast exam. A clinical breast exam by your physician is recommended on an annual basis and results should be correlated with mammographic findings. Note on Joyce scores and lifetime risk: 1. A Joyce score greater than 3% is considered moderate risk. If this is the case, consider specialist referral to assess eligibility for a risk reducing agent. 2. If overall lifetime risk for the development of breast cancer is 20% or higher, the patient may qualify for future screening with alternating mammogram and breast MRI. Electronically signed and approved by: Jai Estrada D.O. Radiologis
== END | disposition home or self-care (01) ==
LOC: RADMAMWWP 10:12
PROVIDERS: ATTEND Internal Medicine Hematology & Oncology
DX: C50.411 Malignant neoplasm of upper-outer quadrant of right female breast (principal); R92.8 Other abnormal and inconclusive findings on diagnostic imaging of breast; I10 Essential (primary) hypertension; Z71.3 Dietary counseling and surveillance
CPT/HCPCS: 77062; 77066

== ENCOUNTER → 2024-02-03 | Outpatient (CLI) | payer BC ==
--- NOTE | 2024-02-08 22:46 | BD ---
EXAMINATION TYPE: Axial Bone Density DATE OF EXAM: 02/03/2024 CLINICAL HISTORY: 53 years old Female. ICD-10 CODE: C50.411 BD , Additional History: Height: 64.5 Weight: 100 FRAX RISK QUESTIONS: Family History (Parent hip fracture): grandmother broke hip, maternal side History of Fracture in Adulthood: yes 3. Menopause before 45: no at 50 RISK FACTORS HISTORY OF: breast cancer right side, 2020, hx of broken hand/fingers 2 yrs ago, scoliosis, MEDICATIONS: estrogen mayuri, bp meds, vit d, vit b, calcium, EXAM MEASUREMENTS: Bone mineral densitometry was performed using the [employer] System. Bone mineral density as measured about the Lumbar spine is: ----- L1-L4(G/cm2): 0.989 T Score Values are as follows: ----- L1: -1.8 ----- L2: -1.6 ----- L3: -1.4 ----- L4: -1.8 ----- L1-L4: -1.6 Z Score Values are as follows: ----- L1: -0.5 ----- L2: -0.3 ----- L3: -0.1 ----- L4: -0.5 ----- L1-L4: -0.3 Bone mineral density has: Decreased -0.4% since study of: 10.30.2021 Bone mineral density about the R hip (g/cm2): 0.731 Bone mineral density about the L hip (g/cm2): 0.792 T Score values are as follows: -----R Neck: -2.4 -----L Neck: -2.2 -----R Total: -2.2 -----L Total: -1.7 Z Score values are as follows: -----R Neck: -1.1 -----L Neck: -0.8 -----R Total: -1.2 -----L Total: -0.7 Bone mineral density has: Decreased -4.9% since study of: 10.30.2021 FRAX%s: The graph provided illustrates a 20.9% chance for a major osteoporotic fx and a 2.8% chance f or the hips probability for fx in 10 years time. IMPRESSION: Osteopenia (T Score between -2.5 and -1). There is slightly increased risk of fracture and the patient may be considered for treatment. Re-Screen 2-5 years. NOTE: T-SCORE=SD OF THE YOUNG ADULT MEAN. [facility], , 02/08/2024 10:43 PM
== END | disposition home or self-care (01) ==
LOC: RADBDWWP 11:01
PROVIDERS: ATTEND Internal Medicine Hematology & Oncology
DX: C50.411 Malignant neoplasm of upper-outer quadrant of right female breast (principal); M85.89 Other specified disorders of bone density and structure, multiple sites
CPT/HCPCS: 77080

== ENCOUNTER → 2024-09-08 | Outpatient (CLI) | payer BC ==
--- NOTE | 2024-09-08 11:22 | MM ---
Reason for Exam: Hx of breast cancer, conservation therapy. Last screening mammogram was performed 12 month(s) ago. Patient History: Menarche at age 12. Patient has no children. Postmenopausal. Breast cancer, right, age 50. Previous chest radiation therapy at age 50. Previous chemotherapy at age 50. 10/09/2020, Lumpectomy on the Right side. 10/09/2020, Malignant Core Biopsy on the right side. 09/18/2020, Malignant Core Biopsy on the right side. 2020, Radiation Therapy on the right side. Tissue Density: The breasts are heterogeneously dense, which may obscure small masses. Findings: Analyzed By CAD. Postsurgical and posttreatment changes right breast. No significant change from prior exams. Overall Assessment: Benign, BI-RAD 2 Management: Screening Mammogram of both breasts in 1 year. Results were given to the patient verbally at the time of exam. Patient should continue monthly self-breast exams. A clinical breast exam by your physician is recommended on an annual basis. This exam should not preclude additional follow-up of suspicious palpable abnormalities. [facility], , 09/08/2024 11:18 AM. Electronically signed and approved by: Brit Aparicio M.D. Radiologist
== END | disposition home or self-care (01) ==
LOC: RADMAMWWP 10:28
PROVIDERS: ATTEND Internal Medicine Hematology & Oncology
DX: R92.8 Other abnormal and inconclusive findings on diagnostic imaging of breast (principal); R92.333 Mammographic heterogeneous density, bilateral breasts; Z78.0 Asymptomatic menopausal state; Z85.3 Personal history of malignant neoplasm of breast
CPT/HCPCS: 77062; 77066